=== PATIENT | male | born 1995 | race African-American/Black ===

== ENCOUNTER 2021-07-25 20:06 | Emergency (ER) | payer SELFPAY ==
[2021-07-25] MEDS ORDERED: Lidocaine 1% PF 5 ML VIAL ONE (20:13)
[2021-07-25] MEDS ORDERED: Bacitracin 1 PK ONE (20:56)
== END 2021-07-25 21:03 | disposition home or self-care (01) ==
LOC: ERS 20:06
DX: S01.112A Laceration without foreign body of left eyelid and periocular area, initial encounter (principal); X58.XXXA Exposure to other specified factors, initial encounter
CPT/HCPCS: 12011

== ENCOUNTER 2022-05-15 23:06 | Emergency (ER) | payer SELFPAY ==
[2022-05-15 23:58] LABS: Bacteria/HPF None Seen HPF (None Seen); Bilirubin Negative (Negative); Blood, Urine Negative (Negative); Clarity Clear (Clear); Glucose, Urine (Dipstick) Normal (Negative); Ketone, Urine Negative (Negative); Leukocyte 500 Leu/uL (Negative); Nitrite Negative (Negative); Protein, Urine (Dipstick) 20 mg/dL (Neg-Trace); RBC/HPF 0-3 HPF (0-3); Specific Gravity, Urine 1.027 (1.002-1.036); Squamous Epithelial 0-3 HPF (0-3); WBC/HPF Greater than 50 HPF (0-3)
[2022-05-16] MEDS ORDERED: cefTRIAXone (ROCEPHIN) 500 MG VIAL ONE (01:46)
[2022-05-16] MEDS ORDERED: Lidocaine 1% PF 5 ML VIAL ONE (01:46)
[2022-05-16 12:53] LABS: Chlam.trachomatis by PCR,Urine DETECTED (NotDetected); GC N.gonorrhoeae PCR,UrineVOID DETECTED (NotDetected)
== END 2022-05-16 02:05 | disposition home or self-care (01) ==
LOC: ERS 23:06
DX: N34.1 Nonspecific urethritis (principal); R36.9 Urethral discharge, unspecified
CPT/HCPCS: 81003; 81015; 87491; 87591; 96372; 99283; J0696

== ENCOUNTER 2022-09-19 11:50 | Emergency (ER) | payer SELFPAY ==
[2022-09-19] MEDS ORDERED: Azithromycin 250 MG TAB ONE (12:21)
[2022-09-19] MEDS ORDERED: Lidocaine 1% PF 5 ML VIAL ONE (12:21)
[2022-09-19] MEDS ORDERED: cefTRIAXone (ROCEPHIN) 500 MG VIAL ONE (12:21)
[2022-09-19 12:24] LABS: Bilirubin Negative (Negative); Blood, Urine Negative (Negative); CAUTI Indications for Culture Dysuria,urgency,freq; Clarity Turbid (Clear); Glucose, Urine (Dipstick) Normal (Negative); Ketone, Urine Negative (Negative); Leukocyte 500 Leu/uL (Negative); Nitrite Negative (Negative); Protein, Urine (Dipstick) Negative (Neg-Trace); RBC/HPF 0-3 HPF (0-3); Specific Gravity, Urine 1.019 (1.002-1.036); Squamous Epithelial 0-3 HPF (0-3); Urobilinogen Normal mg/dL (Less than 2)
[2022-09-19 12:32] LABS: Bacteria/HPF 1+ HPF (None Seen); WBC/HPF 21-50 HPF (0-3)
[2022-09-19 12:33] LABS: Urine Culture Reflex Yes Yes
[2022-09-19 15:11] LABS: Chlam.trachomatis by PCR,Urine DETECTED (NotDetected); GC N.gonorrhoeae PCR,UrineVOID DETECTED (NotDetected)
== END 2022-09-19 13:22 | disposition home or self-care (01) ==
LOC: ERS 11:50
DX: N34.1 Nonspecific urethritis (principal); Z20.2 Contact with and (suspected) exposure to infections with a predominantly sexual mode of transmission; F17.210 Nicotine dependence, cigarettes, uncomplicated
CPT/HCPCS: 81001; 87086; 87491; 87591; 96372; 99283; J0696